=== PATIENT | female | born 1985 | race Caucasian/White ===

== ENCOUNTER 2020-11-01 10:09 | Emergency (ER) | payer MEDICARE, MEDICAID ==
[~2020-11-01] VITALS: Ht 172.7 cm; Wt 71.7 kg
[~2020-11-01 10:09] MED LIST: CIPR500T87 PO; CLON1TAB PO; DOCU-131 PO; IBUP-1223 PO; IBUP200C8; OXYC-501 PO
[2020-11-01 10:28] VITALS: BP 126/88
[2020-11-01] MEDS ORDERED: DIPHENHYDRAMINE 50 MG/ML, 1ML IVPush ONE (11:00)
[2020-11-01] MEDS ORDERED: FAMOTIDINE 20 MG/2 ML IVPush ONE (11:00)
== END 2020-11-01 11:19 | disposition home or self-care (01) ==
LOC: ED 10:48
DX: L03.211 Cellulitis of face (principal)
CPT/HCPCS: 99283